=== PATIENT | female | born 1955 | race Caucasian/White ===

== ENCOUNTER 2017-01-23 09:21 | Day surgery (SDC) | payer OTHER ==
[2017-01-23] MEDS ORDERED: OMEGA-31 SGL PO (09:38)
[2017-01-23] MEDS ORDERED: NEXIUM 40MG40 MG PO (09:38)
[2017-01-23] MEDS ORDERED: CALCIUM-500 5001 CTB PO (09:38)
[2017-01-23] MEDS ORDERED: VITAMIN D32000 I1 PO (09:39)
[2017-01-23] MEDS ORDERED: ZYRTEC 10MG10 MG PO (09:39)
[2017-01-23] MEDS ORDERED: ASPIRIN 81M81 MG/TA2 PO (09:39)
[2017-01-23] MEDS ORDERED: MOTRIN 800800 MG/TAB PO (09:40)
[2017-01-23] MEDS ORDERED: HCTZ 25MG TAB25 MG PO (09:40)
[2017-01-23] MEDS ORDERED: XANAX 0.5MG0.5 MG PO (09:41)
[2017-01-23] MEDS ORDERED: SUDOGEST COLD PO (09:41)
[2017-01-23] MEDS ORDERED: BIOTIN10000 MC1 PO (09:42)
[2017-01-23] MEDS ORDERED: ZANTAC 150MG T150 MG PO (09:42)
[2017-01-23] MEDS ORDERED: PHARMASSURE CHE30 MG PO (09:42)
[2017-01-23 11:34] VITALS: BP 140/82; PULSE 59; TEMP 97.6
[2017-01-23 11:50] VITALS: BP 130/75; PULSE 55
[2017-01-23 12:13] VITALS: BP 108/64; PULSE 59
== END 2017-01-23 12:07 | disposition home or self-care (01) ==
LOC: SDCO 09:21
DX: Z12.11 Encounter for screening for malignant neoplasm of colon (principal); K57.90 Diverticulosis of intestine, part unspecified, without perforation or abscess without bleeding; I10 Essential (primary) hypertension; K21.9 Gastro-esophageal reflux disease without esophagitis; E78.00 Pure hypercholesterolemia, unspecified
CPT/HCPCS: J2250; J2405; J3010; J7030